=== PATIENT | female | born 1955 | race Caucasian/White ===

== ENCOUNTER 2023-06-18 07:00 | Day surgery (SDC) | payer MEDICARE, MEDICAID ==
[~2023-06-18 07:00] MED LIST: Dextrose 5%-0.45% NaCl 1,000 ML IV SCH
[2023-06-18] MEDS ORDERED: Midazolam 1 MG/ML 2 ML SDV ONE (07:04)
[2023-06-18] MEDS ORDERED: fentaNYL 100 MCG/2 ML SDV ONE (07:04)
[2023-06-18] MEDS ORDERED: fentaNYL 100 MCG/2 ML SDV IV ONE ×2 (08:37→08:38)
[2023-06-18] MEDS ORDERED: Midazolam 1 MG/ML 2 ML SDV IV ONE ×6 (08:37→08:44)
== END 2023-06-18 11:07 | disposition home or self-care (01) ==
LOC: DL.ENDO 07:00
PROVIDERS: ATTEND Internal Medicine Gastroenterology
DX: K63.5 Polyp of colon (principal); K64.8 Other hemorrhoids; K64.4 Residual hemorrhoidal skin tags; N39.0 Urinary tract infection, site not specified; E83.42 Hypomagnesemia; I10 Essential (primary) hypertension; M19.90 Unspecified osteoarthritis, unspecified site; E21.3 Hyperparathyroidism, unspecified; E66.09 Other obesity due to excess calories; Z88.0 Allergy status to penicillin; Z80.0 Family history of malignant neoplasm of digestive organs; Z90.710 Acquired absence of both cervix and uterus; Z68.35 Body mass index [BMI] 35.0-35.9, adult; Z91.030 Bee allergy status; Z87.828 Personal history of other (healed) physical injury and trauma; Z86.19 Personal history of other infectious and parasitic diseases
CPT/HCPCS: 88305; J2250; J3010; J7042